=== PATIENT | male | born 1960 | race African-American/Black ===

== ENCOUNTER 2024-08-22 19:00 | Inpatient (IN) | payer MEDICARE, OTHER ==
[~2024-08-22] VITALS: Ht 180.3 cm; Wt 68.0 kg
[2024-08-22 19:31] LABS: BASOPHILS % (AUTO) 0.8 % (0.0-2.0); EOSINOPHILS # (AUTO) 0.5 K/uL (0.0-0.7); EOSINOPHILS % (AUTO) 8.3 % (0.0-6.0); HEMATOCRIT 41 % (39-51); LYMPHOCYTES # (AUTO) 1.5 K/uL (0.8-4.8); LYMPHOCYTES % (AUTO) 26.5 % (20.0-44.0); MEAN CORPUSCULAR HEMOGLOBIN 22 PG (26.0-33.0); MEAN CORPUSCULAR HGB CONC 32 g/dl (31.0-36.0); MEAN CORPUSCULAR VOLUME 68 fL (80-96); MONOCYTES # (AUTO) 0.8 K/uL (0.1-1.30); MONOCYTES % (AUTO) 13.8 % (2.0-12.0); NEUTROPHILS # (AUTO) 2.9 K/uL (1.8-8.9); NEUTROPHILS % (AUTO) 50.6 % (43.0-81.0); PLATELET COUNT (AUTO) 270 K/uL (150-450); RED BLOOD CELL COUNT(AUTO) 6.03 MIL/uL (4.5-6.0); RED CELL DISTRIBUTION WIDTH 16.3 % (11.5-15.0); WHITE BLOOD COUNT (AUTO) 5.7 K/uL (4.3-11.0)
[2024-08-22 19:39] LABS: CALCIUM, SERUM 9.2 mg/dL (8.5-10.1); CARBON DIOXIDE 34 mmol/L (21-32); CHLORIDE 101 mmol/L (98-107); CREATININE 0.3 mg/dL (0.6-1.3); GLUCOSE 87 mg/dL (74-106); POTASSIUM 4.2 mmol/L (3.5-5.1); SODIUM SERUM 138 mmol/L (136-145); UREA NITROGEN, BLOOD 9 mg/dL (7-18)
[2024-08-22 19:45] LABS: ACETAMINOPHEN < 10 ug/ml (10-30); ALANINE AMINOTRANSFERASE 21 U/L (12-78); ALBUMIN 3.1 g/dL (3.4-5.0); ALKALINE PHOSPHATASE 102 U/L (46-116); ASPARTATE AMINOTRANSFERASE 19 U/L (15-37); BILIRUBIN,DIRECT 0.1 mg/dL (0.0-0.2); BILIRUBIN,TOTAL 0.3 mg/dL (0.2-1.0); TOTAL PROTEIN, SERUM 7.1 g/dL (6.4-8.2)
[2024-08-22 19:46] LABS: ALCOHOL, BLOOD < 3 mg/dL (0-10); SALICYLATE 2.1 mg/dL (2.8-20.0)
[2024-08-22 23:29] LABS: APPEARANCE,URINE CLEAR (CLEAR); BILIRUBIN,URINE NEGATIVE (NEGATIVE); BLOOD, URINE NEGATIVE Ery/uL (NEGATIVE); COLOR,URINE YELLOW (YELLOW); KETONES,URINE TRACE mg/dL (NEGATIVE); LEUKOCYTE ESTERASE ,URINE NEGATIVE (NEGATIVE); NITRITE, URINE NEGATIVE (NEGATIVE); PROTEIN,URINE NEGATIVE (NEGATIVE); UGLUCOSE NEGATIVE (NEGATIVE)
[2024-08-22 23:50] LABS: AMPHETAMINE, URINE NEGATIVE (NEGATIVE); BARBITURATE, URINE NEGATIVE (NEGATIVE)
[2024-08-22 23:51] LABS: BENZODIAZEPINE, URINE NEGATIVE (NEGATIVE); CANNABINOID, URINE POSITIVE (NEGATIVE); COCCAINE, URINE NEGATIVE (NEGATIVE); OPIATE, URINE NEGATIVE (NEGATIVE); PHENCYCLIDINE SCREEN,URINE NEGATIVE (NEGATIVE)
[2024-08-23 00:35] LABS: ADD URINE CULTURE YES; BACTERIA,URINE Many /HPF (None Seen)
[2024-08-23 00:36] LABS: MUCUS,URINE Many /LPF (None Seen); SPERM,URINE Few /HPF (None Seen); SQUAMOUS EPITHELIAL CELL,UR Moderate /HPF (None Seen)
[2024-08-23] MEDS ORDERED: LORAZEPAM 0.5 MG TABLET PO PRN (06:00)
[2024-08-23] MEDS ORDERED: MAG HYDROX/AL HYDROX/SIMETH 30 ML UDC PO PRN (06:00)
[2024-08-23] MEDS ORDERED: LORAZEPAM 1 MG TABLET PO PRN (06:00)
[2024-08-23] MEDS ORDERED: TEMAZEPAM 7.5 MG CAPSULE PO PRN (06:00)
[2024-08-23] MEDS ORDERED: LORAZEPAM 1 MG TABLET PO ONE (06:00)
[2024-08-23] MEDS ORDERED: IPRA4AER IH (06:09)
[2024-08-23] MEDS ORDERED: NICO-627 TD (06:09)
[2024-08-23] MEDS ORDERED: DIVA-76 PO (06:09)
[2024-08-23] MEDS ORDERED: TRAM50TA2 PO (06:09)
[2024-08-23] MEDS ORDERED: METH-647 PO (06:09)
[2024-08-23] MEDS ORDERED: ASCO500C17 PO (06:09)
[2024-08-23] MEDS ORDERED: HYDR-3980 PO (06:09)
[2024-08-23] MEDS ORDERED: ZINC220T4 PO (06:09)
[2024-08-23] MEDS ORDERED: RIVA10TA PO (06:09)
[2024-08-23] MEDS ORDERED: GABA300C PO (06:09)
[2024-08-23] MEDS ORDERED: PANT40TA49 PO (06:09)
[2024-08-23] MEDS: BLOOD SUGAR DIAGNOSTIC 1 EACH STRIP IN ONE (06:11)
[2024-08-23] MEDS ORDERED: DULO20CA PO (06:15)
[2024-08-23] MEDS ORDERED: ONDA-97 PO (06:15)
[2024-08-23] MEDS ORDERED: OLAN5TAB3 PO (06:15)
[2024-08-23 06:39] VITALS: BP 146/98; TEMP 98.4; O2SAT 98
[2024-08-23 08:00] VITALS: BP 150/98; TEMP 98; O2SAT 98
[2024-08-23] MEDS ORDERED: BISA10SU11 RC (08:14)
[2024-08-23] MEDS ORDERED: MAGN400O6 PO (08:14)
[2024-08-23] MEDS ORDERED: ASCO500T21 PO (08:14)
[2024-08-23] MEDS ORDERED: LACT1CAP57 PO (08:14)
[2024-08-23] MEDS ORDERED: TEMA15CA PO (08:14)
[2024-08-23] MEDS ORDERED: ACET325T53 PO (08:14)
[2024-08-23] MEDS ORDERED: MULT-594 PO (08:14)
[2024-08-23] MEDS ORDERED: NA P133E RC (08:14)
[2024-08-23] MEDS ORDERED: MUPI22OI7 TP (08:14)
[2024-08-23] MEDS ORDERED: ACETAMINOPHEN 325 MG TABLET PO PRN (09:30)
[2024-08-23] MEDS ORDERED: BISACODYL SUPP (10 MG) 10 MG/SUPP.RECT SUPP.RECT RC PRN (09:30)
[2024-08-23] MEDS ORDERED: MAGNESIUM HYDROXIDE 30 ML UDC PO PRN (09:30)
[2024-08-23] MEDS ORDERED: ONDANSETRON 4 MG TAB.RAPDIS PO PRN (10:00)
[2024-08-23] MEDS ORDERED: IPRATROPIUM NEB FS 0.5 MG/2.5 ML AMPUL.NEB NEB PRN (10:00)
[2024-08-23] MEDS: HYDROCODONE/APAP 10/325MG TABLET PO PRN (11:13)
[2024-08-23] MEDS: GABAPENTIN 300 MG CAPSULE PO SCH ×2 (13:31→17:05)
[2024-08-23] MEDS: METHOCARBAMOL (500MG) 500 MG TABLET PO SCH (13:31)
[2024-08-23] MEDS: NICOTINE PATCH (14MG) 14 MG PATCH.TD24 TD SCH (14:34)
[2024-08-23 16:00] VITALS: BP 117/84; TEMP 98.1; O2SAT 98
[2024-08-23] MEDS: DIVALPROEX SODIUM 250 MG TABLET.DR PO SCH (16:22)
[2024-08-23] MEDS: MUPIROCIN OINT 2% 22 GM TUBE TP SCH (16:49)
[2024-08-23] MEDS: RIVAROXABAN 10 MG TABLET PO SCH (17:07)
[2024-08-23 21:09] VITALS: BP 110/89; TEMP 98.2; O2SAT 100
[2024-08-23] MEDS: OLANZAPINE 10 MG TABLET PO SCH (21:36)
[2024-08-23] MEDS: TEMAZEPAM 7.5 MG CAPSULE PO PRN (21:37)
[2024-08-24] MEDS: TRAMADOL HCL 50 MG TABLET PO PRN (05:27)
[2024-08-24] MEDS: PANTOPRAZOLE 40 MG TABLET.DR PO SCH (07:30)
[2024-08-24 08:00] VITALS: BP 108/80; TEMP 97.9; O2SAT 96
[2024-08-24] MEDS: HALOPERIDOL LACTATE INJ 5 MG/ML VIAL IM STA (08:09)
[2024-08-24] MEDS: LORAZEPAM INJ 2 MG/ML VIAL IM STA (08:09)
[2024-08-24] MEDS: diphenhydrAMINE HCL 50 MG/ML VIAL IM STA (08:09)
[2024-08-24] MEDS: LACTOBACILLUS RHAMNOSUS GG 1 EACH CAP.SPRINK PO SCH (08:25)
[2024-08-24] MEDS: DULOXETINE HCL 30 MG CAPSULE.DR PO SCH (08:25)
[2024-08-24] MEDS: ZINC SULFATE 220 MG CAPSULE PO SCH (08:26)
[2024-08-24] MEDS: MULTIVITAMINS,THERAGRAN 1 UDTAB TABLET PO SCH (08:26)
[2024-08-24] MEDS: ASCORBIC ACID 500 MG TABLET PO SCH (08:26)
[2024-08-24] MEDS: NICOTINE PATCH (14MG) 14 MG PATCH.TD24 TD SCH (08:27)
[2024-08-24] MEDS: OLANZAPINE 5 MG TABLET PO SCH (08:27)
[2024-08-24] MEDS ORDERED: DULOXETINE HCL 20 MG CAPSULE.DR PO SCH (09:00)
[2024-08-24 16:00] VITALS: BP 121/81; TEMP 98.1; O2SAT 98
[2024-08-24 20:18] VITALS: BP 129/70; TEMP 98.2; O2SAT 98
[2024-08-24] MEDS: OLANZAPINE 10 MG TABLET PO SCH (21:19)
[2024-08-25] MEDS: ACETAMINOPHEN 325 MG TABLET PO PRN (04:43)
[2024-08-25 07:47] LABS: CREATININE 0.4 mg/dL (0.6-1.3)
[2024-08-25 07:51] LABS: ALBUMIN 2.9 g/dL (3.4-5.0); BILIRUBIN,TOTAL 0.3 mg/dL (0.2-1.0); CALCIUM, SERUM 9.2 mg/dL (8.5-10.1); CREATININE 0.4 mg/dL (0.6-1.3); POTASSIUM 4.6 mmol/L (3.5-5.1)
[2024-08-25 07:54] LABS: CHOLESTEROL 84 mg/dL (<200); HDL CHOLESTEROL 55 mg/dL (40-60); LDL 31 mg/dL (0-99); TRIGLYCERIDES 10 mg/dL (30-150)
[2024-08-25 08:00] VITALS: BP 90/64; TEMP 97.9; O2SAT 99
[2024-08-25 16:00] VITALS: BP 130/81; TEMP 98; O2SAT 96
[2024-08-25 20:19] VITALS: BP 133/82; TEMP 98.5; O2SAT 96
[2024-08-26 08:00] VITALS: BP 117/83; TEMP 97.8; O2SAT 94
[2024-08-26] MEDS: HYDROGEL DRESSING 90 GM TUBE TP SCH (09:23)
[2024-08-26] MEDS: DULOXETINE HCL 20 MG CAPSULE.DR PO SCH (09:37)
[2024-08-26 16:00] VITALS: BP 90/66; TEMP 97.8; O2SAT 97
[2024-08-26 20:00] VITALS: BP 125/80; TEMP 98.8; O2SAT 96
[2024-08-26 20:30] VITALS: BP 125/80; TEMP 98.8; O2SAT 96
[2024-08-27 08:00] VITALS: BP 120/80; TEMP 98; O2SAT 98
[2024-08-27 16:00] VITALS: BP 123/72; TEMP 98; O2SAT 98
[2024-08-27 20:53] VITALS: BP 148/97; TEMP 98; O2SAT 98
[2024-08-28 08:00] VITALS: BP 119/74; TEMP 97.6; O2SAT 97
[2024-08-28 15:56] VITALS: BP 116/84; TEMP 98; O2SAT 96
[2024-08-28 21:01] VITALS: BP 105/80; TEMP 98.2; O2SAT 96
[2024-08-29 08:00] VITALS: BP 121/90; TEMP 98.7; O2SAT 100
[2024-08-29 15:59] VITALS: BP 132/88; TEMP 98.6; O2SAT 95
[2024-08-29 19:56] VITALS: BP 131/95; TEMP 98.3; O2SAT 95
[2024-08-30] MEDS: MAGNESIUM HYDROXIDE 30 ML UDC PO PRN (05:22)
[2024-08-30 08:00] VITALS: BP 124/89; TEMP 98.6; O2SAT 96
[2024-08-30 16:00] VITALS: BP 118/79; TEMP 98.7; O2SAT 100
[2024-08-30 20:49] VITALS: BP 134/92; TEMP 98.6; O2SAT 96
[2024-08-31 08:00] VITALS: BP 138/98; TEMP 98.1; O2SAT 98
[2024-08-31] MEDS: Z GUARD REMEDY 4 OZ OINT TP SCH (13:13)
[2024-08-31 16:00] VITALS: BP 107/75; TEMP 97.8; O2SAT 99
[2024-08-31 20:10] VITALS: BP 118/75; TEMP 98; O2SAT 100
[2024-08-31] MEDS: Z GUARD REMEDY 4 OZ OINT TP PRN (21:39)
[2024-09-01 08:00] VITALS: BP 138/113; TEMP 97.7; O2SAT 98
[2024-09-01] MEDS: LORAZEPAM 0.5 MG TABLET PO PRN (08:35)
[2024-09-01 16:00] VITALS: BP 101/64; TEMP 97.9; O2SAT 98
[2024-09-01 20:00] VITALS: BP 122/68; TEMP 98.3; O2SAT 98
[2024-09-02 08:00] VITALS: BP 126/84; TEMP 97.8; O2SAT 97
== END 2024-09-02 12:40 | DRG 885 ==
LOC: ER 19:04 → GPS 20:43
PROVIDERS: ADMIT Psychiatry & Neurology Psychiatry; ATTEND Nurse Practitioner Family
DX: F25.0 Schizoaffective disorder, bipolar type (principal); G82.20 Paraplegia, unspecified; Z89.612 Acquired absence of left leg above knee; J44.9 Chronic obstructive pulmonary disease, unspecified; E88.09 Other disorders of plasma-protein metabolism, not elsewhere classified; D64.9 Anemia, unspecified; Z89.431 Acquired absence of right foot; Z88.0 Allergy status to penicillin; Z91.018 Allergy to other foods; T87.81 Dehiscence of amputation stump; Z91.199 Patient's noncompliance with other medical treatment and regimen due to unspecified reason; Z79.899 Other long term (current) drug therapy; R79.89 Other specified abnormal findings of blood chemistry; R45.850 Homicidal ideations; I73.9 Peripheral vascular disease, unspecified; K21.9 Gastro-esophageal reflux disease without esophagitis
CPT/HCPCS: 36415; 80048-TC; 80053-TC; 80061-TC; 80076-TC; 81001; 82565-TC; 82962-TC; 85025-TC; 87081-TC; 87086-TC; A6248; A6253; G0480; J1200; J1630; J2060